=== PATIENT | male | born 1955 | race Caucasian/White ===

== ENCOUNTER 2021-03-28 16:49 | Observation (INO) ==
[2021-03-28 17:52] LABS: Basophils # 0.1 K/mcL (0.0-0.2); Basophils % 0.9 %; Eosinophils # 0.3 K/mcL (0.0-0.6); Eosinophils % 3.8 %; Hematocrit 42.9 % (37.5-50.1); Hemoglobin 14.2 g/dL (12.9-16.9); Immature Granulocytes % 0.4 % (0-4); Lymphocytes # 2.5 K/mcL (0.6-4.6); Lymphocytes % 32.3 %; Mean Corpuscular HGB Conc 33.1 g/dL (31.6-35.5); Mean Corpuscular Hemoglobin 31.6 pg (28.0-33.3); Mean Corpuscular Volume 95.3 fL (83.0-100.0); Mean Platelet Volume 9.8 fL (9.4-12.4); Monocytes # 0.8 K/mcL (0.0-1.3); Monocytes % 10.3 %; Platelet Count 324 K/mcL (140-400); Red Cell Distribution Width 14.2 % (11.5-14.5); Segmented Neutrophils % 52.3 %; White Blood Count 7.7 K/mcL (4.3-11.1)
[2021-03-28 18:10] LABS: BUN/Creatinine Ratio 11 (6-26); Blood Urea Nitrogen 12 mg/dL (8-23); Calcium 9.4 mg/dL (8.6-10.3); Carbon Dioxide 26 mEq/L (23-29); Chloride 103 mEq/L (98-107); Glucose 100 mg/dL (70-105); Osmolality,Calculated 286 (280-300); Sodium 138 mEq/L (136-145); eGFR For African Americans > 60 (> 60); eGFR For Non-African Americans > 60 (> 60)
[2021-03-28 18:11] LABS: Troponin I < 0.03 ng/mL (< 0.04)
[2021-03-28 19:12] LABS: Prothrombin Time 11.5 Seconds (9.4-12.1)
[2021-03-28 19:15] LABS: Activated Partial Thrombo Time 29.7 Seconds (26.0-36.0)
[2021-03-28] MEDS ORDERED: Perflutren Lipid Microsphere 1.3 ML in 0.9 % Sodium Chloride 8.7 ML IVP PRN (21:29)
[2021-03-28] MEDS ORDERED: Ondansetron 4 MG/2 ML VIAL IVP PRN (21:30)
[2021-03-28] MEDS ORDERED: Naloxone 0.4 MG/ML INJ IVP PRN (21:30)
[2021-03-28] MEDS ORDERED: Melatonin 3 MG TABLET PO PRN (21:30)
[2021-03-28] MEDS ORDERED: Acetaminophen 325 MG TABLET PO PRN (21:30)
[2021-03-28] MEDS ORDERED: Nitroglycerin 0.4 MG TAB.SUBL SL PRN (21:32)
[2021-03-28 21:48] LABS: Chol/HDL Ratio 3.9 (0-4.9); Cholesterol 196 mg/dL (< 200); HDL Cholesterol 50 mg/dL (40-59); LDL Cholesterol,Calculated 97 mg/dL (< 100); Triglycerides 244 mg/dL (< 150)
[2021-03-29 05:33] LABS: Basophils # 0.1 K/mcL (0.0-0.2); Basophils % 1.2 %; Eosinophils # 0.3 K/mcL (0.0-0.6); Eosinophils % 4.4 %; Hematocrit 41.4 % (37.5-50.1); Hemoglobin 13.7 g/dL (12.9-16.9); Immature Granulocytes % 0.5 % (0-4); Lymphocytes # 2.7 K/mcL (0.6-4.6); Lymphocytes % 35.2 %; Mean Corpuscular HGB Conc 33.1 g/dL (31.6-35.5); Mean Corpuscular Hemoglobin 31.4 pg (28.0-33.3); Mean Corpuscular Volume 94.7 fL (83.0-100.0); Mean Platelet Volume 9.6 fL (9.4-12.4); Monocytes # 0.8 K/mcL (0.0-1.3); Monocytes % 10.2 %; Neutrophils # 3.7 K/mcL (1.6-8.9); Platelet Count 280 K/mcL (140-400); Red Blood Count 4.37 M/mcL (4.19-5.50); Segmented Neutrophils % 48.5 %; White Blood Count 7.7 K/mcL (4.3-11.1)
[2021-03-29 05:35] LABS: Estimated Average Glucose 128 mg/dl; Hemoglobin A1C 6.1 %
[2021-03-29] MEDS: *HR* Heparin 5,000 UNIT/ML VIAL SQ SCH ×2 (05:42→16:20)
[2021-03-29 05:47] LABS: BUN/Creatinine Ratio 15 (6-26); Blood Urea Nitrogen 15 mg/dL (8-23); Calcium 9.2 mg/dL (8.6-10.3); Carbon Dioxide 23 mEq/L (23-29); Chloride 106 mEq/L (98-107); Glucose 107 mg/dL (70-105); Osmolality,Calculated 285 (280-300); Potassium 3.9 mEq/L (3.5-5.1); Sodium 137 mEq/L (136-145); eGFR For African Americans > 60 (> 60); eGFR For Non-African Americans > 60 (> 60)
[2021-03-29] MEDS ORDERED: Regadenoson 0.4 MG/5 ML SYRINGE IVP ONE (06:23)
[2021-03-29] MEDS ORDERED: lisinopriL 20 MG TABLET PO SCH (09:00)
[2021-03-29] MEDS ORDERED: Aspirin 81 MG TAB.CHEW PO SCH (09:00)
[2021-03-29] MEDS ORDERED: Nitroglycerin 1,000 MCG/5 ML VIAL IV ONE (12:24)
[2021-03-29] MEDS ORDERED: Heparin 1,000 UNITS/500 mL 500 ML ONE (12:24)
[2021-03-29] MEDS ORDERED: *HR* Heparin 10,000 UNIT/10 ML VIAL ONE (12:24)
[2021-03-29] MEDS ORDERED: 0.9 % Sodium Chloride 1,000 ML ONE ×2 (12:24→12:38)
[2021-03-29] MEDS ORDERED: ISOVUE-370 200 ML INFUS..BTL ONE (12:24)
[2021-03-29] MEDS ORDERED: *HR* FentaNYL (PF) 100 MCG/2 ML VIAL ONE (12:35)
[2021-03-29] MEDS ORDERED: *HR* Midazolam HCl 2 MG/2 ML VIAL ONE (12:35)
[2021-03-29] MEDS ORDERED: 0.9 % Sodium Chloride 1,000 ML IVC SCH (13:15)
[2021-03-29 15:04] VITALS: BP 154/83
[2021-03-30] MEDS ORDERED: Isosorbide MONOnitrate (24 HR) 30 MG TAB.ER.24H PO SCH (09:00)
== END 2021-03-29 17:50 | disposition home or self-care (01) ==
LOC: 3BNU 16:49 → EMEROOARM 16:49 → SUATTDRO 19:51 → 3BNU 20:49
PROVIDERS: ADMIT Family Medicine; ATTEND Internal Medicine